=== PATIENT | male | born 1955 ===

== ENCOUNTER → 2017-07-06 | Outpatient (CLI) | payer BC | END | disposition home or self-care (01) | LOC: LAB SHORT 10:04 → PLD 10:04 | DX: D48.5 Neoplasm of uncertain behavior of skin (principal) | CPT/HCPCS: 88305 ==

== ENCOUNTER → 2019-07-16 | Outpatient (CLI) | payer BC | END | disposition home or self-care (01) | LOC: LAB SHORT 11:22 → PLD 11:22 | DX: C44.212 Basal cell carcinoma of skin of right ear and external auricular canal (principal) | CPT/HCPCS: 88305 ==

== ENCOUNTER → 2019-10-02 | Outpatient (CLI) | payer BC | END | disposition home or self-care (01) | LOC: LAB SHORT 12:15 → PLD 12:15 | DX: D48.5 Neoplasm of uncertain behavior of skin (principal) | CPT/HCPCS: 88305 ==

== ENCOUNTER 2019-11-07 12:30 | Inpatient (IN) | payer BC ==
[~2019-11-07] VITALS: Ht 188 cm; Wt 98.3 kg
[2019-11-07 13:21] LABS: BASOPHILS ABSOLUTE AUTO 0.05 K/mm3 (0.00-0.23); BASOPHILS PERCENT AUTO 1 % (0-2); EOSINOPHILS ABSOLUTE AUTO 0.15 K/mm3 (0.00-0.68); EOSINOPHILS PERCENT AUTO 2 % (0-6); Hematocrit 44.2 % (37.0-53.0); Hemoglobin 15.1 g/dL (13.5-17.5); IMMATURE GRAN ABSOLUTE AUTO 0.02 K/mm3 (0.00-0.10); IMMATURE GRAN PERCENT AUTO 0 % (0-1); LYMPHOCYTES ABSOLUTE AUTO 1.95 K/mm3 (0.84-5.20); LYMPHOCYTES PERCENT AUTO 21 % (21-46); MONOCYTES ABSOLUTE AUTO 0.79 K/mm3 (0.16-1.47); MONOCYTES PERCENT AUTO 8 % (4-13); Mean Corpuscular HGB 30.9 pg (26.0-34.0); Mean Corpuscular HGB Conc 34.2 g/dL (31.5-36.5); Mean Corpuscular Volume 90 fL (80-100); Mean Platelet Volume 10.7 fL (9.1-12.4); NEUTROPHILS ABSOLUTE AUTO 6.46 K/mm3 (1.96-9.15); NEUTROPHILS PERCENT AUTO 69 % (41-73); Platelet Count 211 K/mm3 (150-400); RDW Coefficient Variation 12.6 % (11.7-14.2); RDW Standard Deviation 41.6 fL (35.1-46.3); Red Blood Cell Count 4.89 M/mm3 (4.30-5.90); White Blood Cell Count 9.42 K/mm3 (4.00-11.30)
[2019-11-07 13:25] LABS: Calcium, Ionized (POC) 1.13 mmol/L (1.10-1.46); Chloride (POC) 104 mmol/L (98-108); Creatinine (POC) 1.2 mg/dL (0.8-1.3); Glucose (ISTAT POC) 159 mg/dL (70-99); Hemoglobin (POC) 14.3 g/dL (13.5-17.5); Potassium (POC) 3.8 mmol/L (3.5-5.5); Sodium (POC) 137 mmol/L (135-148); Total CO2 (POC) 24 mmol/L (21-32)
[2019-11-07 13:41] LABS: Alanine Aminotransfer (ALT/SGP 51 U/L (12-78); Albumin, Blood 3.9 g/dL (3.4-5.0); Alk Phos 65 U/L (50-136); Anion Gap 10 mmol/L (6-16); Aspartate Aminotrans (AST/SGOT 136 U/L (12-37); Bilirubin, Total 0.8 mg/dL (0.1-1.0); Blood Urea Nitrogen 19 mg/dL (8-24); Bun/Creatinine Ratio 17.6 (12.0-20.0); CO2, Blood 22 mmol/L (21-32); Calcium, Blood 8.9 mg/dL (8.5-10.1); Chloride, Blood 106 mmol/L (98-108); Creatinine, Blood 1.08 mg/dL (0.60-1.20); Glomerular Filtration Rate >60 (60-); Glucose, Blood 152 mg/dL (70-99); Potassium, Blood 3.9 mmol/L (3.5-5.5); Sodium, Blood 138 mmol/L (136-145); Total Protein, Blood 7.9 g/dL (6.4-8.2)
--- NOTE | 2019-11-07 17:58 | NUR ---
ADMIT/SHIFT SUMMARY PT ARRIVED TO ICU 12 VIA BED AT 1530 S/P STENT PLACEMENT IN CATHLAB. PT IS AWAKE, ALERT, AND ORIENTED. PT FOLLOWS DIRECTIONS AND ANSWERS QUESTIONS APPROPRIATELY. PT DENIES CHEST PAIN, NAUSEA, OR SOB AT THIS TIME. VITAL SIGNS STABLE. PT ON ROOM AIR. MILD ST ELEVATION NOTED ON MONITOR. TR BAND IN PLACE TO RIGHT RADIAL ACCESS SITE. SITE IS C/D/I, NO BRUISING OR HEMATOMA NOTED. ARM BOARD IN PLACE. PT USING URINAL TO VOID LARGE AMOUNT OF CLEAR YELLOW URINE. NS INFUSING AT 75 ML/HR. WILL CONTINUE TO MONITOR AND REPORT OFF TO ONCOMING RN.
--- NOTE | 2019-11-07 18:00 | NUR ---
echocardiogram complete
--- NOTE | 2019-11-07 21:45 | NUR ---
PT RESTING IN BED. DENIES CP, N/V, SOB, AND N/T. HAS R RADIAL ACCESS SITE. TR BAND HAS BEEN DEFLATED. PLACED CLEAR OCCLUSIVE DRESSING OVER SITE. ARM BOARD IN PLACE. SITE IS STABLE. DR. LAGUNAS CALLED TO SAY PT MIGHT HAVE A LV THROMBUS AND WANTS TO START PT ON HEPARIN STARTING AT MIDNIGHT. EDUCATED PT ON MED AND WHAT TO EXPECT. NO REQUESTS AT THIS TIME. PT USES URINAL INDEP. AND CAN MOVE IN BED INDEP.
--- NOTE | 2019-11-07 22:57 | NUR ---
PT ALERTED RN THAT HE IS HAVING SOME SHARP PAINS IN R CHEST THAT COME AND GO. IT DID WAKE HIM OUT OF A SLEEP BUT STATES IT IS ONLY 1-2/10. STATES IT IS DIFFERENT THAN THE PAIN THAT ORIGINALLY BROUGHT HIM IN TO HOSPITAL. NO BLEEDING FROM R RADIAL ACCESS SITE. VITAL SIGNS ARE STABLE. CALLED DR. LAGUNAS WHO SAID WE WILL CONTINUE TO MONITOR AND ORDERED NITRO SL OR FENTANYL IV IF PAIN WORSENS. PT DECLINES PAIN MEDS AT THE MOMENT.
--- NOTE | 2019-11-08 01:00 | NUR ---
PT STATES DISCOMFORT IN CHEST HAS DISAPATED.
--- NOTE | 2019-11-08 06:09 | NUR ---
SUMMARY PT RESTING IN BED. A/O X4. HAD AN EPISODE OF CP THAT WOULD COME AND GO. WAS 1-2/10 AND SHARP. ONLY LASTED A SHORT PERIOD OF TIME. DENIES PAIN THIS AM. ON HEPARIN GTT FOR POSSIBLE LV THROMBUS PER DR. LAGUNAS. R RADIAL ACCESS SITE REMAINS STABLE ALL NIGHT. ARM BOARD IN PLACE AND PT VERBALIZES UNDERSTANDING TO NOT USE ARM. NO SIGN OF DISTRESS. CALL LIGHT IN REACH AND USES APPROPRIATELY.
[2019-11-08 06:18] LABS: BASOPHILS ABSOLUTE AUTO 0.05 K/mm3 (0.00-0.23); BASOPHILS PERCENT AUTO 0 % (0-2); EOSINOPHILS ABSOLUTE AUTO 0.12 K/mm3 (0.00-0.68); EOSINOPHILS PERCENT AUTO 1 % (0-6); Hematocrit 42.8 % (37.0-53.0); Hemoglobin 14.2 g/dL (13.5-17.5); IMMATURE GRAN ABSOLUTE AUTO 0.03 K/mm3 (0.00-0.10); IMMATURE GRAN PERCENT AUTO 0 % (0-1); LYMPHOCYTES ABSOLUTE AUTO 1.89 K/mm3 (0.84-5.20); LYMPHOCYTES PERCENT AUTO 16 % (21-46); MONOCYTES ABSOLUTE AUTO 1.22 K/mm3 (0.16-1.47); MONOCYTES PERCENT AUTO 10 % (4-13); Mean Corpuscular HGB 30.1 pg (26.0-34.0); Mean Corpuscular HGB Conc 33.2 g/dL (31.5-36.5); Mean Corpuscular Volume 91 fL (80-100); Mean Platelet Volume 10.2 fL (9.1-12.4); NEUTROPHILS ABSOLUTE AUTO 8.89 K/mm3 (1.96-9.15); NEUTROPHILS PERCENT AUTO 73 % (41-73); Platelet Count 181 K/mm3 (150-400); RDW Coefficient Variation 12.6 % (11.7-14.2); RDW Standard Deviation 41.8 fL (35.1-46.3); Red Blood Cell Count 4.71 M/mm3 (4.30-5.90)
[2019-11-08 06:40] LABS: Anion Gap 9 mmol/L (6-16); Blood Urea Nitrogen 16 mg/dL (8-24); Bun/Creatinine Ratio 16.6 (12.0-20.0); CO2, Blood 23 mmol/L (21-32); Calcium, Blood 8.2 mg/dL (8.5-10.1); Chloride, Blood 105 mmol/L (98-108); Creatine Kinase MB 35.4 ng/mL (0.0-3.6); Creatinine, Blood 0.97 mg/dL (0.60-1.20); Glomerular Filtration Rate >60 (60-); Glucose, Blood 142 mg/dL (70-99); Potassium, Blood 3.8 mmol/L (3.5-5.5); Sodium, Blood 137 mmol/L (136-145)
[2019-11-08 06:56] LABS: CPK Creatine Kinase 1094 U/L (39-308); Creatine Kinase MB Index 3.2 (0.0-4.0)
--- NOTE | 2019-11-08 07:35 | NUR ---
ASSUMED CARE: PT SITTING UPRIGHT IN BED UPON ARRIVAL TO ROOM. DENIES CP, NSR WITH HEPARIN GTT AND NS RUNNING. HEPARIN GTT VERIFIED WITH ROSALINE JOHNSON. LAB CALLED WITH [facility]. DISCUSSED WITH SHELLFISH MANAGER AND ORDERED NEXT LAB FOR THIS AFTERNOON TO TREND. PT ASKED TO GET UP INTO CHAIR. MINIMAL ASSIST FOR LINES. DENIES CP WITH ACTIVITY. RIGHT RADIAL SITE WITH TRANSPARENT DRESSING. NO SIGN OF BLEEDING, SWELLING OR BRUISING. PT DENIES FURTHER NEEDS AT THIS TIME.
--- NOTE | 2019-11-08 17:29 | NUR ---
SHIFT SUMMARY: PT'S TROPONIN TRENDING DOWN. DENIES CHEST PAIN THIS SHIFT. HEPARIN OFF AND TRANSITIONED TO [place] AND [place]. AMBULTORY TO SHOWER AND IN ROOM. DENIES NEEDS OR CONCERNS. PCU STATUS.
--- NOTE | 2019-11-08 19:46 | NUR ---
INITAL SHIFT ASSESSMENT PT IS ALERT AND ORIENTED. HE IS PLESANT AND COOPERTIVE AT THIS TIME. HE DENIES ANY CHEST PAIN OR PRESSURE. TR BAND ACCESS SITE TO RIGHT WRIST HAS A CLEAR DRESSING CDI. NO BRUISING OR SWELLING AND NO TENDERNESS TO SITE. PT HAS ARM/WRIST BOARD IN PLACE. DISCUSSED GUIDELINES FOR RESTRICTIONS TO RIGHT WRIST. HE DEMONSTRATES UNDERSTANDING. VITALS ARE STABLE AT THIS TIME. PT IS USING URINAL NEEDED. TWO PERIPHERAL IV'S TO AC'S ARE CDI AND PATENT. OVERALL ASSESSMENT IS BENIGN. PT HAS CALL LIGHT IN REACH AND BED IN LOW POSISTION.
--- NOTE | 2019-11-09 05:01 | NUR ---
SHIFT SUMMARY PT CON'T TO BE STABLE. HE HAS HAD NO CHANGES T/O SHIFT. HE ONLY CALLED FOR THIS RN ONCE. WANTING A HOT BACK FOR HIS ARM. STATES HE WAS HAVING A CRAMP IN HIS ELBOW AREA. PT CON'T TO DENY CHEST PAIN OR DISCOMFORT. VITALS ARE STABLE. HE IS RESTING WELL. NO CHANGES TO TR BAND SITE. DRESSING CON'T TO BE CDI. WILL CON'T TO MONITOR AND KEEP PT SAFE TILL REPORT TO ONCOMING RN.
--- NOTE | 2019-11-09 08:00 | NUR ---
DR LAGUNAS IN TO SEE PT States plans for pt to discharge today. Pt sitting up in chair at this time. States he feels he is ready to go home.
[2019-11-09] MEDS ORDERED: ATOR20 PO (08:16)
[2019-11-09] MEDS ORDERED: ASPI81CH PO (08:16)
[2019-11-09] MEDS ORDERED: CLOP75 PO (08:17)
[2019-11-09] MEDS ORDERED: METO25ER PO (08:18)
[2019-11-09] MEDS ORDERED: LISI5 PO (08:18)
[2019-11-09] MEDS ORDERED: NITR.4SL SL (08:19)
[2019-11-09] MEDS ORDERED: XARELTO20 MG PO (08:19)
--- NOTE | 2019-11-09 10:42 | NUR ---
DISCHARGE Pt discharged from unit at 1010 via wheelchair accomapnied by this RN. Pt educated on radial site care. Pt educated on new medications and medication side effects. Pt verbalized understanding. Medication orders faxed to [facility] in [place], which pt states is his preferred pharmacy. AM medications given. Stent card placed in pt's discharge packet. Pt verbalizes understanding that he is to place this card in his wallet. Follow up appointment for Dr Gamez made by nursing staff. Pt provided with unit phone number in case he has any questions.
== END 2019-11-09 10:15 | disposition home or self-care (01) | DRG 247 ==
LOC: ER 12:30 → ICUW 13:20
PROVIDERS: Nurse Practitioner; ADMIT Internal Medicine Interventional Cardiology
PROC: 4A023N7 Measurement of Cardiac Sampling and Pressure, Left Heart, Percutaneous Approach (ICD-10-PCS; principal; 2019-11-07)
PROC: 027034Z Dilation of Coronary Artery, One Artery with Drug-eluting Intraluminal Device, Percutaneous Approach (ICD-10-PCS; 2019-11-07)
PROC: 02703ZZ Dilation of Coronary Artery, One Artery, Percutaneous Approach (ICD-10-PCS; 2019-11-07)
PROC: 02C03ZZ Extirpation of Matter from Coronary Artery, One Artery, Percutaneous Approach (ICD-10-PCS; 2019-11-07)
PROC: B2111ZZ Fluoroscopy of Multiple Coronary Arteries using Low Osmolar Contrast (ICD-10-PCS; 2019-11-07)
PROC: B241ZZ3 Ultrasonography of Multiple Coronary Arteries, Intravascular (ICD-10-PCS; 2019-11-07)
DX: I21.3 ST elevation (STEMI) myocardial infarction of unspecified site (principal); I50.20 Unspecified systolic (congestive) heart failure; E78.5 Hyperlipidemia, unspecified; I11.0 Hypertensive heart disease with heart failure; Z87.891 Personal history of nicotine dependence; I51.3 Intracardiac thrombosis, not elsewhere classified
CPT/HCPCS: 36415; 71045; 76937; 80047; 80048; 80053; 82550; 82553; 84484; 85014; 85025; 85347; 85730; 92921; 92941; 92978; 93005; 93010; 93458; 99152; 99153; 99285-25; A9270-GY; C1725; C1753; C1757; C1769; C1874; C1887; C1894; C8923; C9606; J1644; J1940; J2250; J3010; J3246; J7030; Q9957; Q9967

== ENCOUNTER → 2021-02-02 | Outpatient (CLI) | payer MEDICARE, BC ==
[~2021-02-02] MED LIST: ASPI81CH PO; ATOR20 PO; CLOP75 PO; LISI5 PO; METO25ER PO; NITR.4SL SL; XARELTO20 MG PO
== END | disposition home or self-care (01) ==
LOC: LAB SHORT 11:39 → LAB 11:39
DX: D48.5 Neoplasm of uncertain behavior of skin (principal); C44.219 Basal cell carcinoma of skin of left ear and external auricular canal; L57.0 Actinic keratosis; C44.319 Basal cell carcinoma of skin of other parts of face
CPT/HCPCS: 88305

== ENCOUNTER → 2021-02-19 | Outpatient (CLI) | payer MEDICARE, BC | END | disposition home or self-care (01) | LOC: LAB SHORT 11:09 → LAB 11:09 | DX: C44.219 Basal cell carcinoma of skin of left ear and external auricular canal (principal); L82.1 Other seborrheic keratosis; L57.0 Actinic keratosis | CPT/HCPCS: 88305 ==

== ENCOUNTER → 2022-04-15 | Outpatient (CLI) | payer MEDICARE, BC ==
[2022-04-15 11:10] LABS: BASOPHILS ABSOLUTE AUTO 0.05 K/mm3 (0.00-0.23); BASOPHILS PERCENT AUTO 1 % (0-2); EOSINOPHILS ABSOLUTE AUTO 0.28 K/mm3 (0.00-0.68); EOSINOPHILS PERCENT AUTO 4 % (0-6); Hematocrit 39.4 % (37.0-53.0); Hemoglobin 13.3 g/dL (13.5-17.5); IMMATURE GRAN ABSOLUTE AUTO 0.02 K/mm3 (0.00-0.10); IMMATURE GRAN PERCENT AUTO 0 % (0-1); LYMPHOCYTES PERCENT AUTO 20 % (21-46); MONOCYTES ABSOLUTE AUTO 0.61 K/mm3 (0.16-1.47); MONOCYTES PERCENT AUTO 8 % (4-13); Mean Corpuscular HGB 30.9 pg (26.0-34.0); Mean Corpuscular HGB Conc 33.8 g/dL (31.5-36.5); Mean Corpuscular Volume 92 fL (80-100); NEUTROPHILS PERCENT AUTO 67 % (41-73); Platelet Count 207 K/mm3 (150-400); RDW Coefficient Variation 12.7 % (11.7-14.2); White Blood Cell Count 7.36 K/mm3 (4.00-11.30)
== END ==
LOC: LAB 11:04 → LAB SHORT 11:04
PROVIDERS: Physician Assistant Surgical
DX: M79.672 Pain in left foot (principal)
CPT/HCPCS: 84550; 85025

== ENCOUNTER → 2022-06-23 | Outpatient (CLI) | payer MEDICARE, BC ==
[2022-06-23 12:43] LABS: Microalb/Creat Ratio UR, Rand 8.651 mg/g (0.000-30.000); Microalbumin, Random Urine 9.17 mg/L (0.000-20.000)
== END ==
LOC: LAB SHORT 06:00 → LAB 06:00
PROVIDERS: Family Medicine
DX: E11.9 Type 2 diabetes mellitus without complications (principal)
CPT/HCPCS: 82043; 82570

== ENCOUNTER 2022-11-23 07:42 | Day surgery (SDC) | payer MEDICARE, BC ==
[~2022-11-23] VITALS: Ht 188 cm; Wt 99.2 kg
[2022-11-23] MEDS ORDERED: FISH OIL 1,2001 EAC7 (08:14)
[2022-11-23] MEDS ORDERED: GABA100 (08:14)
[2022-11-23 09:55] VITALS: BP 105/77
== END 2022-11-23 09:58 | disposition home or self-care (01) ==
LOC: ORSCSDS 07:42
PROVIDERS: Surgery
PROC: 0DJD8ZZ Inspection of Lower Intestinal Tract, Via Natural or Artificial Opening Endoscopic (ICD-10-PCS; principal; 2022-11-23 09:15)
DX: Z12.11 Encounter for screening for malignant neoplasm of colon (principal); I10 Essential (primary) hypertension; E78.5 Hyperlipidemia, unspecified; I25.2 Old myocardial infarction; D64.9 Anemia, unspecified; N18.9 Chronic kidney disease, unspecified; Z87.891 Personal history of nicotine dependence; Z79.82 Long term (current) use of aspirin; Z79.899 Other long term (current) drug therapy
CPT/HCPCS: J2001; J2704; J7120

== ENCOUNTER → 2023-05-24 | Outpatient (CLI) | payer MEDICARE, BC ==
[~2023-05-24] MED LIST changes: +FISH OIL 1,2001 EAC7; +GABA100
== END ==
LOC: LAB 09:40 → LAB SHORT 09:40
DX: L82.0 Inflamed seborrheic keratosis (principal); L57.0 Actinic keratosis
CPT/HCPCS: 88305

== ENCOUNTER → 2025-01-08 | Outpatient (CLI) | payer MEDICARE, BC ==
[~2025-01-08] MED LIST changes: +CYCL10 PO; +LOSARTAN POTASS25 M2 PO; +METOPROLOL SUCC25 MG PO; +NEURONTIN300 MG PO
[2025-01-08 10:43] LABS: Source, Urine Clean Catch
[2025-01-08 11:48] LABS: Red Blood Cells, Urine 0-2 /hpf (0-2); White Blood Cells, Urine 0-2 /hpf (0-5)
[2025-01-08 17:21] LABS: Creatinine, Urine Random 29.4 mg/dL (27.00-270.00); Microalb/Creat Ratio UR, Rand 19.864 mg/g (0.000-30.000); Microalbumin, Random Urine 5.84 mg/L (0.000-20.000)
== END ==
LOC: LAB SHORT 10:39 → LAB 10:39
PROVIDERS: Family Medicine
DX: E11.59 Type 2 diabetes mellitus with other circulatory complications (principal); E11.65 Type 2 diabetes mellitus with hyperglycemia
CPT/HCPCS: 81015; 82043; 82570